=== PATIENT | male | born 1990 | race Two or more races ===

== ENCOUNTER 2019-01-10 17:08 | Outpatient (CLI) | payer OTHER ==
--- NOTE | 2019-01-11 13:10 | MRI Report ---
Reason: BICIPITAL TENDINITIS, UNSPECIFIED SHOULDER Procedure Date: 01/10/2019 Accession Number: [id number] / [id number] Procedure: MRI - Shoulder RT W/O CPT Code: FULL RESULT: EXAM: RIGHT SHOULDER MRI WITHOUT CONTRAST EXAM DATE: 01/10/2019 06:21 PM. CLINICAL HISTORY: BICIPITAL TENDINITIS, UNSPECIFIED SHOULDER. COMPARISON: None. TECHNIQUE: Multiplanar, multisequence T1-weighted and fluid-sensitive sequences of the shoulder without contrast. Other: None. 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 The coracoacromial and coracoclavicular ligaments are intact. Mild subacromial/subdeltoid bursal fluid consistent with bursitis. Glenohumeral Region: No subluxation. No effusion or loose bodies. The articular cartilage is unremarkable. The glenohumeral ligaments and joint capsule are unremarkable. Bone Marrow: Subcortical cysts in the greater tuberosity anteriorly are likely degenerative related to overlying supraspinatus tendinopathy which will be discussed below. No worrisome osseous lesion. Labrum: The labrum is unremarkable on this nonarthrographic study. Musculature/Rotator Cuff: Increased signal in the mid to distal supraspinatus tendon, tendinosis versus low-grade partial thickness tear. No high-grade supraspinatus tear. Mild tendinosis of the distal and anterior infraspinatus. No infraspinatus tear. Teres minor is normal. Small partial-thickness articular surface tear of the far distal and superior subscapularis at the lesser tuberosity insertion. No rotator cuff muscle edema or atrophy. Biceps Tendon: The long head of the biceps tendon and biceps bill are intact. Other: The subcutaneous tissues are unremarkable. IMPRESSION: 1. Tendinosis versus low-grade partial thickness tear of the distal supraspinatus. Subcortical cysts in the greater tuberosity subjacent to the supraspinatus insertion are likely reactive to this. 2. Mild tendinosis of the distal and anterior infraspinatus. 3. Small partial-thickness articular surface tear of the distal and anterior subscapularis at the lesser tuberosity insertion. 4. Unremarkable long head biceps tendon. 5. Mild subacromial/subdeltoid bursitis. [facility] MUSCULOSKELETAL RADIOLOGY SECTION
== END 2019-01-10 17:09 | disposition home or self-care (01) ==
LOC: DI 17:08
PROVIDERS: ATTEND Radiology Diagnostic Radiology
DX: M75.101 Unspecified rotator cuff tear or rupture of right shoulder, not specified as traumatic (principal); M75.91 Shoulder lesion, unspecified, right shoulder; M75.51 Bursitis of right shoulder

== ENCOUNTER 2021-11-29 08:00 | Outpatient (CLI) | payer OTHER | END 2021-11-29 23:59 | LOC: LAB.N 08:00 | PROVIDERS: ATTEND Family Medicine | DX: U07.1 COVID-19 (principal) ==